=== PATIENT | male | born 1970 | race Caucasian/White ===

== ENCOUNTER → 2022-06-23 09:51 | Outpatient (BNVA) | payer OTHER, SELFPAY | PROVIDERS: PCP Internal Medicine; Visit Provider Physician Assistant Medical | DX: S40.012A Contusion of left shoulder, initial encounter (principal); S43.102A Unspecified dislocation of left acromioclavicular joint, initial encounter; W17.89XA Other fall from one level to another, initial encounter | CPT/HCPCS: 73000; 73030; 99203 ==

== ENCOUNTER → 2022-06-30 07:58 | Outpatient (BNVA) | payer OTHER, SELFPAY | PROVIDERS: PCP Internal Medicine; Visit Provider Physician Assistant Medical | DX: S43.102A Unspecified dislocation of left acromioclavicular joint, initial encounter (principal); W17.89XA Other fall from one level to another, initial encounter | CPT/HCPCS: 99213 ==

== ENCOUNTER → 2022-07-07 07:52 | Outpatient (BNVA) | payer OTHER, SELFPAY | PROVIDERS: PCP Internal Medicine; Visit Provider Physician Assistant Medical | DX: S40.012D Contusion of left shoulder, subsequent encounter (principal); S43.102D Unspecified dislocation of left acromioclavicular joint, subsequent encounter; W17.89XD Other fall from one level to another, subsequent encounter | CPT/HCPCS: 99213 ==

== ENCOUNTER 2022-07-13 19:04 | Outpatient (REF) | payer OTHER, SELFPAY ==
--- NOTE | ~2022-07-13 | XR_ITS ---
EXAMINATION: XR SHOULDER, LEFT CLINICAL INFORMATION: Left shoulder pain. COMPARISON: 06/23/2022. TECHNIQUE: 3 views of the left shoulder. FINDINGS: There is no evidence of acute fracture or dislocation of the left shoulder. No calcific tendinitis is identified. Glenohumeral joint appears unremarkable. There is mild elevation of the clavicular head in respect to the acromium, similar to previous study and consistent with a grade 2 partially dislocated joint. XR/XR shoulder LT min 2V IMPRESSION: No change in appearance of left AC joint separation with appearance of type II partially dislocated joint.
== END 2022-07-13 19:05 | disposition home or self-care (01) ==
LOC: HO.HOSX 19:04
PROVIDERS: Visit Provider Physician Assistant
DX: M25.512 Pain in left shoulder (principal)
CPT/HCPCS: 73030

== ENCOUNTER → 2022-07-14 10:02 | Outpatient (BNVA) | payer OTHER, SELFPAY | PROVIDERS: Visit Provider Physician Assistant | DX: S43.102A Unspecified dislocation of left acromioclavicular joint, initial encounter (principal) | CPT/HCPCS: 99202 ==

== ENCOUNTER 2022-08-26 08:00 | Outpatient (RCR) | payer OTHER, SELFPAY ==
--- NOTE | 2022-08-01 09:44 | MHC.PT.EP ---
[facility] [place] Office [place] Office [place] Office [address] Mukesh Olivera [address] [phone] F: [phone] F: [phone] F: [phone] F: [phone] Physical Therapy Plan of Care Date of Evaluation: Date of Surgery: n/a Diagnosis: dislocation of AC joint L Assessment: Patient is a 52 year old male presenting to PT with complaints of pain in his L shoulder. Pt reports onset of pain began 1 month ago due to falling off work truck and landing on shoulder. He presents today with impairments in pain, shoulder ROM, posture, shoulder strength, end range positions. 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 Pt expresses nursing home goal of returning to PLOF, and is motivated to work towards this in PT. Clinical presentation today is most consistent with signs and sx associated with xray findings of L AC joint separation and pt will benefit from skilled PT 2 week x 4 weeks to address the following problems and impairments noted upon evaluation: pain, shoulder ROM, posture, shoulder strength, end range positions. These problems limit the patient with the following functional activities: ADLs, reaching, lifting, work. The prescribed treatment plan of care is medically necessary. Co-morbidities of none were identified and taken into considerations of plan of care. Pt was educated on HEP, role of PT, prognosis, POC. Frequency and Duration: The patient will be seen 2 x week x 4 weeks Short Term Goals: Pt will demonstrate L shoulder ROM equal B without pain in 2 weeks. Pt will demonstrate improved L shoulder strength to 5/5 in 2 weeks. Pt will demonstrate improved postural awareness by sitting with biomechanically correct posture without cues throughout session to improve overall postural function in 2 weeks. Disability Examiner Goals: Pt will demonstrate improved SPADI score by 13 points in 4 weeks for improved functional mobility. Pt will demonstrate ability to tie his shoes without pain in 4 weeks for return to PLOF with ADLs. Pt will demonstrate ability to complete a full work day with min to no pain in 4 weeks for return to PLOF at work. Treatment Plan: Modalities to reduce pain, spasms and effusion. Manual therapy to restore motion and function. Therapeutic exercise to improve strength and flexibility. Neuromuscular re-education for posture and balance. Therapeutic activities to return to functional activities of daily living. Electronically signed by: Marion St PT, DPT, ATC Please sign and return to therapist. Thank you for your referral.
--- NOTE | 2022-10-07 08:23 | MHC.PT.DC ---
[facility] [place] Office [place] Office [place] Office [address]a [address] [phone] F: [phone] F: [phone] F: [phone] F: [phone] Physical Therapy Discharge Report Diagnosis: dislocation of AC joint L Date of Surgery: n/a Date of Evaluation: 08/01/22 Date of Discharge: 10/07/22 Treatments to Date: 6 Cancellations to Date: 3 No Shows to Date: 0 Discharge Status: Achieved Goals Improved Function Independent with HEP Discharge Summary: 30 day hold has passed and pt has not returned to skilled PT. Pt to be d/c at this time. Electronically signed by: Marion St, PT, DPT, ATC Please sign and return to therapist. Thank you for your referral.
== END 2022-10-07 08:23 | disposition home or self-care (01) ==
LOC: HO.PTCHIC 08:00
PROVIDERS: PCP Internal Medicine; Visit Provider Physician Assistant
DX: S43.102D Unspecified dislocation of left acromioclavicular joint, subsequent encounter (principal)
CPT/HCPCS: 97110; 97161